=== PATIENT | female | born 1935 | race Caucasian/White ===

== ENCOUNTER 2016-09-16 20:54 | Emergency (ER) | payer OTHER ==
--- NOTE | 2016-09-16 22:25 | ED NURSING NOTES ---
Clinical Report - Nurses [facility] [address] [place] [address] 09/16/2016 20:55 [id number] TRI[facility] Triage time 21:Sep 16 2016. Acuity: LEVEL 3. Chief Complaint: ABDOMINAL PAIN. Alert. No acute distress. MIRLANDE COMA SCORE: [place] Coma Scale: 15- eyes open spontaneously (4); best verbal response- oriented x 4 (5); best motor response- obeys commands (6). --21:15 Valeria May R.N. 21:07 09/16/16. BP: 186/73. HR: 56. RR: 16. O2 saturation: 96%. Temp: 98 F. Pain level now: 09/01. --21:15 Valeria May R.N. Weight: 68 kg stated. Height/Length: 64 inches Per Patient. BMI: 25.8. --21:15 Valeria May R.N. Medications Carbidopa-Levodopa Oral. --21:09 Valeria May R.N. Blood Pressure Pill. --21:10 Valeria May R.N. Aspirin Oral (Tablet Chewable 81 mg) 1 tablet, daily. --21:11 Valeria May R.N. Simvastatin Oral. --21:11 Valeria May R.N. Doxazosin Mesylate Oral. --21:14 Valeria May R.N. History Arrived by private vehicle. Historian: patient. Accompanied by family. This started yesterday. ( patient went to fall yesterday and she caught herself, but twisted. Yesterday she was having rib pain and today the pain has moved into her LUQ.). 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 PAST MEDICAL HX: Immunizations: up-to-date. Denies current . SOCIAL HX: Never smoker. Occasional alcohol use. No drug use. No recent travel. No infectious disease exposure. No known contact with a sick individual. SELF HARM ASSESSMENT: A self harm assessment was performed. The patient answered "no" to the question "Do you have thoughts of harming or killing yourself?". FALL RISK ASSESSMENT: Fall risk assessment completed. No fall risk identified. NUTRITIONAL RISK ASSESSMENT: The nutritional risk assessment revealed no deficiencies. FUNCTIONAL ASSESSMENT: Functional assessment: no impairments noted. LEARNING NEEDS ASSESSMENT: The learning needs assessment revealed no barriers. ABUSE ASSESSMENT: Abuse assessment: The patient was asked "Do you feel safe in your home?". SKIN INTEGRITY ASSESSMENT: Skin integrity risk assessment completed. No skin integrity risk identified. --21:15 Valeria May R.N. PROBLEMS: Hypercholesterolemia. Restless Legs Syndrome. Hypertension. --21:12 Valeria May R.N. ADDITIONAL SURGERIES: None. --21:12 Valeria May R.N. Interventions ID band on patient. To room. --21:15 Valeria May R.N. PHYSICAL ASSESSMENT Ambulatory to room. GENERAL / NEURO / PSYCH: Alert. Oriented X 4. Appears in pain. RESPIRATORY: Respirations not labored. CVS: Capillary refill less than 2 seconds. GI / : Abdomen soft. Abdominal tenderness in the left upper quadrant. SKIN: Skin is warm and dry. --21:16 Valeria May R.N. NURSING PROGRESS NOTES Patient gowned. Head of bed elevated. Patient identifiers checked. Call light placed in reach. Side rails up x 1. Bed placed in lowest position. Brakes of bed on. --21:16 Valeria May R.N. DISPOSITION / DISCHARGE 22:35 09/16/16. Condition at departure: stable. The goals identified in the patient's plan of care were met. No learning barriers present. Discharge instructions provided and reviewed with the patient and family. Reviewed warnings (do not drive while taking sedative medications). Reviewed medication(s) side effects, precautions, dosing and course information. Prescription(s) given to the patient. Patient and family verbalized understanding. Written instructions provided in Slovenian. ( Follow up with your PCP in seven days. Return if you have worsening chest pain, shortness of breath, or other concerning symptoms. You will be sore for a few days. Apply ice for twenty minutes at a time, take an anti-inflammatory and rest the affected extremity. Patient and daughter verbalized understanding and had no additional questions at this time.). The patient was discharged by the physician. She was discharged home and accompanied by family. She left the Emergency Department ambulatory and via private vehicle. Family member driving. ( Provider aware of vitals, patient clear for discharge Patient given Ice pack to take home). FALL RISK ASSESSMENT: Fall risk assessment completed. No fall risk identified. --00:42 Ирина Whalen 22:35 09/16/16. BP: 160/80. HR: 55. RR: 20. O2 saturation: 98% on room air. Temp: deferred. Pain level now: 12/02. --00:42 Ирина Whalen. Locked/Released at 09/17/2016 0:43 by Ирина Whalen,
--- NOTE | 2016-09-16 22:25 | ED NURSING NOTES ---
Clinical Report - Nurses [facility] [address] [place] [address] 09/16/2016 20:55 [id number] TRI[facility] Triage time 21:Sep 16 2016. Acuity: LEVEL 3. Chief Complaint: ABDOMINAL PAIN. Alert. No acute distress. MIRLANDE COMA SCORE: [place] Coma Scale: 15- eyes open spontaneously (4); best verbal response- oriented x 4 (5); best motor response- obeys commands (6). --21:15 Valeria May R.N. 21:07 09/16/16. BP: 186/73. HR: 56. RR: 16. O2 saturation: 96%. Temp: 98 F. Pain level now: 09/01. --21:15 Valeria May R.N. Weight: 68 kg stated. Height/Length: 64 inches Per Patient. BMI: 25.8. --21:15 Valeria May R.N. Medications Carbidopa-Levodopa Oral. --21:09 Valeria May R.N. Blood Pressure Pill. --21:10 Valeria May R.N. Aspirin Oral (Tablet Chewable 81 mg) 1 tablet, daily. --21:11 Valeria May R.N. Simvastatin Oral. --21:11 Valeria May R.N. Doxazosin Mesylate Oral. --21:14 Valeria May R.N. History Arrived by private vehicle. Historian: patient. Accompanied by family. This started yesterday. ( patient went to fall yesterday and she caught herself, but twisted. Yesterday she was having rib pain and today the pain has moved into her LUQ.). 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 PAST MEDICAL HX: Immunizations: up-to-date. Denies current . SOCIAL HX: Never smoker. Occasional alcohol use. No drug use. No recent travel. No infectious disease exposure. No known contact with a sick individual. SELF HARM ASSESSMENT: A self harm assessment was performed. The patient answered "no" to the question "Do you have thoughts of harming or killing yourself?". FALL RISK ASSESSMENT: Fall risk assessment completed. No fall risk identified. NUTRITIONAL RISK ASSESSMENT: The nutritional risk assessment revealed no deficiencies. FUNCTIONAL ASSESSMENT: Functional assessment: no impairments noted. LEARNING NEEDS ASSESSMENT: The learning needs assessment revealed no barriers. ABUSE ASSESSMENT: Abuse assessment: The patient was asked "Do you feel safe in your home?". SKIN INTEGRITY ASSESSMENT: Skin integrity risk assessment completed. No skin integrity risk identified. --21:15 Valeria May R.N. PROBLEMS: Hypercholesterolemia. Restless Legs Syndrome. Hypertension. --21:12 Valeria May R.N. ADDITIONAL SURGERIES: None. --21:12 Valeria May R.N. Interventions ID band on patient. To room. --21:15 Valeria May R.N. PHYSICAL ASSESSMENT Ambulatory to room. GENERAL / NEURO / PSYCH: Alert. Oriented X 4. Appears in pain. RESPIRATORY: Respirations not labored. CVS: Capillary refill less than 2 seconds. GI / : Abdomen soft. Abdominal tenderness in the left upper quadrant. SKIN: Skin is warm and dry. --21:16 Valeria May R.N. NURSING PROGRESS NOTES Patient gowned. Head of bed elevated. Patient identifiers checked. Call light placed in reach. Side rails up x 1. Bed placed in lowest position. Brakes of bed on. --21:16 Valeria May R.N. DISPOSITION / DISCHARGE 22:35 09/16/16. Condition at departure: stable. The goals identified in the patient's plan of care were met. No learning barriers present. Discharge instructions provided and reviewed with the patient and family. Reviewed warnings (do not drive while taking sedative medications). Reviewed medication(s) side effects, precautions, dosing and course information. Prescription(s) given to the patient. Patient and family verbalized understanding. Written instructions provided in Turkish. ( Follow up with your PCP in seven days. Return if you have worsening chest pain, shortness of breath, or other concerning symptoms. You will be sore for a few days. Apply ice for twenty minutes at a time, take an anti-inflammatory and rest the affected extremity. Patient and daughter verbalized understanding and had no additional questions at this time.). The patient was discharged by the physician. She was discharged home and accompanied by family. She left the Emergency Department ambulatory and via private vehicle. Family member driving. ( Provider aware of vitals, patient clear for discharge Patient given Ice pack to take home). FALL RISK ASSESSMENT: Fall risk assessment completed. No fall risk identified. --00:42 Ирина Whalen 22:35 09/16/16. BP: 160/80. HR: 55. RR: 20. O2 saturation: 98% on room air. Temp: deferred. Pain level now: 12/02. --00:42 Ирина Whalen. Locked/Released at 09/17/2016 0:43 by Ирина Whalen,
--- NOTE | 2016-09-16 22:25 | ED CLINICAL REPORT ---
Clinical Report - Physicians/[facility] Levels [facility] [address] [place] [address] 09/16/2016 20:55 Patient: PEPPER GARCIA Time Seen: 21:35. Arrived- By private vehicle. Historian- patient. HISTORY OF PRESENT ILLNESS Location of injuries- chest. Chief Complaint: FALL. The injury occurred yesterday. Occurred at home. ( patient reports that she almost fell yesterday. She turned and twisted to catch herself. She did not completely fall or strike any objects with her body. She has been sore over her left lower chest. Today this was worse.). The patient complains of moderate pain. REVIEW OF SYSTEMS No chills, fever, sweats, calf pain or cough. No difficulty breathing, pedal edema, palpitations, abdominal pain or constipation. No diarrhea, nausea, vomiting or urinary problems. All systems otherwise negative, except as recorded above. PAST HISTORY Problems: Hypercholesterolemia. Restless Legs Syndrome. Hypertension. Additional Surgeries: None. Medications: Doxazosin Mesylate Oral. Simvastatin Oral. Aspirin Oral (Tablet Chewable 81 mg) 1 tablet, daily. Blood Pressure Pill. Carbidopa-Levodopa Oral. SOCIAL HISTORY Never smoker. Occasional alcohol use. FAMILY HISTORY No significant family medical history. ADDITIONAL NOTES The nursing notes have been reviewed. PHYSICAL EXAM Vital Signs: 09/16/2016 21:07 BP: 186/73. HR: 56. RR: 16. O2 saturation: 96%. Temp: 98 F. Pain level now: 5/10. Have been reviewed. Appearance: Alert. Head: No swelling of head. Eyes: Pupils equal, round and reactive to light. EOM intact. ENT: No dental injury. Pharynx normal. Neck: Painless ROM. Non-tender. No vertebral tenderness. CVS: Heart sounds normal. Respiratory: Chest wall injury: moderate tenderness located in the lower, left, anterior and lateral chest. No splinting present. No paradoxical movement. Abdomen: No visible injury. Soft and nontender. Bowel sounds normal. No organomegaly. No mass. Back: No tenderness. ROM normal. No vertebral point tenderness. Skin: Skin intact. Skin warm and dry. Normal skin color. Normal skin turgor. Extremities: Normal inspection. Pelvis stable. Extremities atraumatic. No lower extremity edema. Neuro: (minor tremulousness and cogwheel rigidity). PROGRESS AND PROCEDURES Course of Care: Patient is stable. Patient/family counseled. Old medical records ordered. Old records unavailable. Disposition: Discharged. Condition: stable. CLINICAL IMPRESSION Muscle strain of the anterior chest wall. INSTRUCTIONS Apply ice for 20 minutes four times a day for two. Don't apply ice directly to skin and don't use while asleep. No driving or operating machinery while taking medication. No strenuous activity. Warnings: GENERAL WARNINGS: Return or contact your physician immediately if your condition worsens or changes unexpectedly, if not improving as expected, or if other problems arise. Prescription Medications: Tylenol with Codeine #3 (30 mg / 300 mg): take 1 tablet every 4 hours as needed for pain. Dispense fifteen (15). No refills. Substitution is permissible. OTC Medications: Motrin (available over the counter): take according to label instructions. Follow-up: Follow up with your doctor in seven days if not better. Understanding of the discharge instructions verbalized by patient and family. (Electronically signed by Curtis Brown MD 09/23/2016 7:47)
--- NOTE | 2016-09-23 07:47 | ED ORDER SUMMARY ---
..... Patient: PEPPER GARCIA OrderSheet [facility] VisitID: [id number] [address] [address] 81y, F Registration Date/Time: 09/16/2016 ORDER SHEET Weight: 68.0 kg (stated) Allergies: GENERAL ORDERS: Ice (22:25 09/16/2016 Amrit CORTES) (22:28 HSoule) MEDICATION ORDERS: IV FLUIDS: ORDER SHEET NOTES: [Electronically signed by Ирина Whalen (00:43 09/17/2016)] [Electronically signed by Curtis Brown MD (07:47 09/23/2016)] [Electronically locked/signed by Ирина Whalen (00:43 09/17/2016)]
--- NOTE | 2016-09-23 07:47 | ED ORDER SUMMARY ---
..... Patient: PEPPER GARCIA OrderSheet [facility] VisitID: [id number] [address] [place] [address] 81y, F Registration Date/Time: 09/16/2016 ORDER SHEET Weight: 68.0 kg (stated) Allergies: GENERAL ORDERS: Ice (22:25 09/16/2016 Amrit CORTES) (22:28 HSoule) MEDICATION ORDERS: IV FLUIDS: ORDER SHEET NOTES: [Electronically signed by Ирина Whalen (00:43 09/17/2016)] [Electronically signed by Curtis Brown MD (07:47 09/23/2016)] [Electronically locked/signed by Ирина Whalen (00:43 09/17/2016)]
--- NOTE | 2016-09-23 07:47 | ED MED RECONCILIATION SUMMARY ---
Patient: PEPPER GARCIA Medication Reconciliation Report [facility] VisitID: [id number] [address] [place] [address] 81y, F Registration Date/Time: 09/16/2016 Weight: 68.0 kg Height/Length: 64 in. BMI: 25.8 ALLERGIES: The patient's Home Medications are listed below: THE FOLLOWING MEDICATIONS NEED TO BE RECONCILED: Aspirin Oral (81 mg) 1 tablet, daily Blood Pressure Pill Carbidopa-Levodopa Oral Doxazosin Mesylate Oral Simvastatin Oral The source(s) of the original Home Medication information: Not obtained. The following Medications were given to the patient in the Emergency Department: None. The following Medications were prescribed to the patient: Motrin (available over the counter): take according to label instructions. -- Curtis Brown MD Tylenol with Codeine #3 (30 mg / 300 mg): take 1 tablet every 4 hours as needed for pain. Dispense fifteen (15). No refills. Substitution is permissible. -- Curtis Brown MD
--- NOTE | 2016-09-23 07:47 | ED MAR SUMMARY ---
..... Medication Administration Record Merged With [facility] [address] [id number] Patient: PEPPER GARCIA Visit ID: [id number] 81y, F Weight: 68.0 kg Height/Length: 64 in BMI: 25.8 ALLERGIES:
--- NOTE | 2016-09-23 07:47 | ED MAR SUMMARY ---
..... Medication Administration Record [facility] [address], [place] [id number] Patient: PEPPER GARCIA Visit ID: [id number] 81y, F Weight: 68.0 kg Height/Length: 64 in BMI: 25.8 ALLERGIES:
--- NOTE | 2016-09-23 07:47 | ED DISCHARGE INSTRUCTIONS ---
Patient: PEPPER GARCIA General Instructions [facility] VisitID: [id number] [place] [address] 81y, F Registration Date/Time: 09/16/2016 Muscle strain of the anterior chest wall. INSTRUCTIONS Apply ice for 20 minutes four times a day for two. Don't apply ice directly to skin and don't use while asleep. No driving or operating machinery while taking medication. No strenuous activity. Warnings: GENERAL WARNINGS: Return or contact your physician immediately if your condition worsens or changes unexpectedly, if not improving as expected, or if other problems arise. Prescription Medications: Tylenol with Codeine #3 (30 mg / 300 mg): take 1 tablet every 4 hours as needed for pain. Dispense fifteen (15). No refills. Substitution is permissible. OTC Medications: Motrin (available over the counter): take according to label instructions. Follow-up: Follow up with your doctor in seven days if not better. Understanding of the discharge instructions verbalized by patient and family. ADDITIONAL INFORMATION Chest Strain A strain of the chest is due to stretching and tearing of the muscle fibers between the ribs. This may occur as a result of severe coughing, strenuous lifting or twisting injuries of the upper back. This usually causes increased pain with movement or deep breathing. This may take a few days to a few weeks to heal. Home Care: Rest. Avoid heavy lifting or strenuous exertion. Avoid any activity that causes pain. If you have a severe cough, use a cough syrup such as Robitussin DM (containing dextromethorphan) unless another cough medicine was prescribed. You may use acetaminophen (Tylenol) or ibuprofen (Motrin, Advil) to control pain, unless another medicine was prescribed. [ NOTE: If you have chronic liver or kidney disease or ever had a stomach ulcer or GI bleeding, talk with your doctor before using these medicines.] Follow Up with your doctor as directed. Get Prompt Medical Attention if any of the following occur: A change in the type of pain: if it feels different, becomes more severe, lasts longer, or begins to spread into your shoulder, arm, neck, jaw or back Shortness of breath or increased pain with breathing Cough with dark colored sputum (phlegm) or blood Weakness, dizziness, or fainting Fever of 100.4F (38C) or higher, or as directed by your healthcare provider Acetaminophen, Codeine Phosphate Oral tablet What is this medicine? ACETAMINOPHEN; CODEINE (a set a EDUARDO helena fen; ADA cifuentes) is a pain reliever. It is used to treat mild to moderate pain. How should I use this medicine? Take this medicine by mouth with a full glass of water. Follow the directions on the prescription label. If the medicine upsets your stomach, take the medicine with food or milk. Do not take more medicine than you are told to take. Talk to your recreation supervisor regarding the use of this medicine in children. Special care may be needed. What side effects may I notice from receiving this medicine? Side effects that you should report to your doctor or health day care home provider as soon as possible: allergic reactions like skin rash, itching or hives, swelling of the face, lips, or tongue breathing difficulties, wheezing confusion light headedness or fainting spells severe stomach pain yellowing of the skin or the whites of the eyes Side effects that usually do not require medical attention (report to your doctor or health day care home provider if they continue or are bothersome): dizziness drowsiness nausea, vomiting What may interact with this medicine? alcohol antihistamines benztropine drugs for bladder problems like solifenacin, trospium, oxybutynin, tolterodine, hycosamine, and methscopolamine drugs for breathing problems like ipratropium and tiotropium drugs for certain stomach or intestine problems like propantheline, homatropine methylbromide, glycopyrrolate, atropine, belladonna, and dicyclomine medicines for depression, anxiety, or psychotic disturbances medicines for sleep muscle relaxants naltrexone narcotic medicines (opiates) for pain phenothiazines like perphenazine, thioridazine, chlorpromazine, mesoridazine, fluphenazine, prochlorperazine, promazine, trifluoperazine scopolamine tramadol trihexyphenidyl What if I miss a dose? If you miss a dose, take it as soon as you can. If it is almost time for your next dose, take only that dose. Do not take double or extra doses. Where should I keep my medicine? Keep out of the reach of children. This medicine can be abused. Keep your medicine in a safe place to protect it from theft. Do not share this medicine with anyone. Selling or giving away this medicine is dangerous and against the law. Store at room temperature between 15 and 30 degrees C (59 and 86 degrees F). Protect from light. Keep container tightly closed. Throw away any unused medicine after the expiration date. Discard unused medicine and used packaging carefully. Pets and children can be harmed if they find used or lost packages. What should I tell my health care provider before I take this medicine? They need to know if you have any of these conditions: brain tumor Crohn's disease, inflammatory bowel disease, or ulcerative colitis drink more than 3 alcohol containing drinks per day drug abuse or addiction head injury heart or circulation problems kidney disease or problems going to the bathroom liver disease lung disease, asthma, or breathing problems an unusual or allergic reaction to acetaminophen, codeine, salicylates, other opioid analgesics, other medicines, foods, dyes, or preservatives or trying to get breast-feeding What should I watch for while using this medicine? Tell your doctor or health day care home provider if your pain does not go away, if it gets worse, or if you have new or a different type of pain. You may develop tolerance to the medication. Tolerance means that you will need a higher dose of the medication for pain relief. Tolerance is normal and is expected if you take the medicine for a long time. Do not suddenly stop taking your medicine because you may develop a severe reaction. Your body becomes used to the medicine. This does NOT mean you are addicted. Addiction is a behavior related to getting and using a drug for a non medical reason. If you have pain, you have a medical reason to take pain medicine. Your doctor will tell you how much medicine to take. If your doctor wants you to stop the medicine, the dose will be slowly lowered over time to avoid any side effects. You may get drowsy or dizzy. Do not drive, use machinery, or do anything that needs mental alertness until you know how this medicine affects you. Do not stand or sit up quickly, especially if you are an older patient. This reduces the risk of dizzy or fainting spells. Alcohol may interfere with the effect of this medicine. Avoid alcoholic drinks. There are different types of narcotic medicines (opiates) for pain. If you take more than one type at the same time, you may have more side effects. Give your health care provider a list of all medicines you use. Your doctor will tell you how much medicine to take. Do not take more medicine than directed. Call emergency for help if you have problems breathing. The medicine will cause constipation. Try to have a bowel movement at least every 2 to 3 days. If you do not have a bowel movement for 3 days, call your doctor or health day care home provider. Do not take Tylenol (acetaminophen) or medicines that have acetaminophen with this medicine. Too much acetaminophen can be very dangerous. Many nonprescription medicines contain acetaminophen. Always read the labels carefully to avoid taking more acetaminophen. Immediately call your physician or get emergency help if you are breast-feeding and your baby is sleepier than usual, is limp, or has difficulty or breathing. Ibuprofen Oral tablet What is this medicine? IBUPROFEN (eye BYOO proe fen) is a non-steroidal anti-inflammatory drug (NSAID). It is used for dental pain, fever, headaches or migraines, osteoarthritis, rheumatoid arthritis, or painful monthly periods. It can also relieve minor aches and pains caused by a cold, flu, or sore throat. How should I use this medicine? Take this medicine by mouth with a glass of water. Follow the directions on the prescription label. Take this medicine with food if your stomach gets upset. Try to not lie down for at least 10 minutes after you take the medicine. Take your medicine at regular intervals. Do not take your medicine more often than directed. A special MedGuide will be given to you by the pharmacist with each prescription and refill. Be sure to read this information carefully each time. Talk to your recreation supervisor regarding the use of this medicine in children. Special care may be needed. What side effects may I notice from receiving this medicine? Side effects that you should report to your doctor or health day care home provider as soon as possible: allergic reactions like skin rash, itching or hives, swelling of the face, lips, or tongue black or bloody stools, blood in the urine or in vomit breathing problems changes in vision chest pain general ill feeling or flu-like symptoms nausea or vomiting redness, blistering, peeling or loosening of the skin, including inside the mouth slurred speech or weakness on one side of the body stomach pain unexplained weight gain or swelling unusually weak or tired yellowing of eyes or skin Side effects that usually do not require medical attention (report to your doctor or health day care home provider if they continue or are bothersome): constipation or diarrhea dizziness gas or heartburn stomach upset What may interact with this medicine? Do not take this medicine with any of the following medications: cidofovir ketorolac methotrexate pemetrexed This medicine may also interact with the following medications: alcohol aspirin diuretics lithium other drugs for inflammation like prednisone warfarin What if I miss a dose? If you miss a dose, take it as soon as you can. If it is almost time for your next dose, take only that dose. Do not take double or extra doses. Where should I keep my medicine? Keep out of the reach of children. Store at room temperature between 15 and 30 degrees C (59 and 86 degrees F). Keep container tightly closed. Throw away any unused medicine after the expiration date. What should I tell my health care provider before I take this medicine? They need to know if you have any of these conditions: asthma cigarette smoker drink more than 3 alcohol containing drinks a day heart disease or circulation problems such as heart failure or leg edema (fluid retention) high blood pressure kidney disease liver disease stomach bleeding or ulcers an unusual or allergic reaction to ibuprofen, aspirin, other NSAIDS, other medicines, foods, dyes, or preservatives or trying to get breast-feeding What should I watch for while using this medicine? Tell your doctor or healthcare professional if your symptoms do not start to get better or if they get worse. This medicine does not prevent heart attack or stroke. In fact, this medicine may increase the chance of a heart attack or stroke. The chance may increase with longer use of this medicine and in people who have heart disease. If you take aspirin to prevent heart attack or stroke, talk with your doctor or health day care home provider. Do not take other medicines that contain aspirin, ibuprofen, or naproxen with this medicine. Side effects such as stomach upset, nausea, or ulcers may be more likely to occur. Many medicines available without a prescription should not be taken with this medicine. This medicine can cause ulcers and bleeding in the stomach and intestines at any time during treatment. Ulcers and bleeding can happen without warning symptoms and can cause . To reduce your risk, do not smoke cigarettes or drink alcohol while you are taking this medicine. You may get drowsy or dizzy. Do not drive, use machinery, or do anything that needs mental alertness until you know how this medicine affects you. Do not stand or sit up quickly, especially if you are an older patient. This reduces the risk of dizzy or fainting spells. This medicine can cause you to bleed more easily. Try to avoid damage to your teeth and gums when you brush or floss your teeth. You have been given the following additional information: Chest Wall Strain Acetaminophen, Codeine Phosphate Oral tablet Ibuprofen Oral tablet No driving or operating machinery while taking medication. No strenuous activity. (Electronically signed by Curtis Brown MD 09/23/2016 7:47)
--- NOTE | 2016-09-23 07:47 | ED MED RECONCILIATION SUMMARY ---
Patient: PEPPER GARCIA Medication Reconciliation Report [facility] VisitID: [id number] [place] [address] 81y, F Registration Date/Time: 09/16/2016 Weight: 68.0 kg Height/Length: 64 in. BMI: 25.8 ALLERGIES: The patient's Home Medications are listed below: THE FOLLOWING MEDICATIONS NEED TO BE RECONCILED: Aspirin Oral (81 mg) 1 tablet, daily Blood Pressure Pill Carbidopa-Levodopa Oral Doxazosin Mesylate Oral Simvastatin Oral The source(s) of the original Home Medication information: Not obtained. The following Medications were given to the patient in the Emergency Department: None. The following Medications were prescribed to the patient: Motrin (available over the counter): take according to label instructions. -- Curtis Brown MD Tylenol with Codeine #3 (30 mg / 300 mg): take 1 tablet every 4 hours as needed for pain. Dispense fifteen (15). No refills. Substitution is permissible. -- Curtis Brown MD
== END 2016-09-16 22:35 | disposition home or self-care (01) ==
LOC: ED SRH 20:54
DX: S29.011A Strain of muscle and tendon of front wall of thorax, initial encounter (principal); W19.XXXA Unspecified fall, initial encounter; Y92.009 Unspecified place in unspecified non-institutional (private) residence as the place of occurrence of the external cause; Y99.9 Unspecified external cause status; I10 Essential (primary) hypertension